=== PATIENT | female | born 1990 | race Two or more races ===

== ENCOUNTER 2018-06-02 20:51 | Inpatient (IN) | payer SELFPAY ==
[~2018-06-02] VITALS: Ht 172.7 cm; Wt 67.1 kg
[2018-06-02] MEDS ORDERED: SODIUM CHLORIDE 0.9% 1,000ML IVBOLUS ONE (22:00)
[2018-06-02] MEDS ORDERED: ACETAMINOPHEN 325 MG TABLET PO ONE (22:00)
[2018-06-02 22:12] LABS: MEAN CORPUSCULAR HEMOGLOBIN 31.9 pg (27.0-34.8); MEAN CORPUSCULAR HGB CONC 33.7 g/dL (32.4-35.8); MEAN CORPUSCULAR VOLUME 94.5 fL (80-100); MEAN PLATELET VOLUME 8.2 fL (7.4-10.4); PLATELET COUNT 334 x10^3/uL (130-400); RED BLOOD COUNT 3.69 x10^6/uL (3.82-5.3); RED CELL DISTRIBUTION WIDTH 14.6 % (9.6-15.2)
[2018-06-02 22:13] LABS: CULTURE INDICATED? NO; MICROSCOPIC NOT IND
[2018-06-02 22:24] LABS: ALANINE AMINOTRANSFERASE 20 U/L (12-78); ALBUMIN 3.2 g/dL (3.4-5.0); ANION GAP 5 mmol/L (5-15); CALCIUM 8.4 mg/dL (8.5-10.1); CHLORIDE 111 mmol/L (98-107); CREATININE 0.62 mg/dL (0.55-1.02)
[2018-06-02 22:26] LABS: AMPHETAMINE SCREEN, URINE Negative (Negative); BARBITURATE SCREEN, URINE Negative (Negative); BENZODIAZEPINE SCREEN, URINE Negative (Negative); CANNABINOID SCREEN, URINE Negative (Negative); COCAINE SCREEN, URINE Negative (Negative); METHADONE SCREEN, URINE Negative (Negative); OPIATE SCREEN, URINE Negative (Negative)
[2018-06-02 22:29] LABS: ALKALINE PHOSPHATASE 84 U/L (45-117); BILIRUBIN,TOTAL 0.3 mg/dL (0.2-1.0); SALICYLATE LEVEL < 1.7 mg/dL (2.8-20.0); TOTAL PROTEIN 6.8 g/dL (6.4-8.2); TROPONIN I < 0.015 ng/mL (0.000-0.045)
[2018-06-02 22:30] LABS: ACETAMINOPHEN < 2 mcg/mL (10-30)
[2018-06-02 22:33] LABS: BASOPHILS # (AUTO) 0.03 x10^3/uL (0-0.1); BASOPHILS % (AUTO) 0 % (0-1); EOSINOPHILS # (AUTO) 0.01 x10^3/uL (0-0.4); EOSINOPHILS % (AUTO) 0 % (1-7); LYMPHOCYTES # (AUTO) 1.37 x10^3/uL (1-3.4); LYMPHOCYTES % (AUTO) 6 % (22-44); MD SCAN; MONOCYTES % (AUTO) 6 % (2-9); NEUTROPHILS # (AUTO) 19.22 x10^3/uL (1.8-6.8); NEUTROPHILS % (AUTO) 88 % (42-75)
[2018-06-02] MEDS ORDERED: ACETAMINOPHEN 325 MG TABLET ONE (23:25)
[2018-06-03] MEDS ORDERED: CEFTRIAXONE 1,000 MG in SODIUM CHLORIDE 0.9% 50 ML IV ONE
[2018-06-03] MEDS ORDERED: SODIUM CHLORIDE 0.9% 1,000 ML IV ONE (00:07)
[2018-06-03] MEDS ORDERED: CEFTRIAXONE PMX 1GM/50ML 50 ML ONE (00:19)
[2018-06-03] MEDS ORDERED: ACETAMINOPHEN 325 MG TABLET ONE (00:23)
[2018-06-03] MEDS ORDERED: ONDANSETRON 2MG/ML, 2ML IVPush PRN (00:30)
[2018-06-03] MEDS ORDERED: PROMETHAZINE 25 MG/ML, 1ML IM PRN (00:30)
[2018-06-03] MEDS ORDERED: ONDANSETRON ODT 4 MG PO PRN (00:30)
[2018-06-03 01:00] VITALS: BP 106/66
[2018-06-03] MEDS: POTASSIUM CHLORIDE 20 MEQ, MAGNESIUM SULFATE 2 GM, THIAMINE 100 MG, MVI ADULT 10 ML, FO... IV SCH (03:40)
[2018-06-03 05:50] LABS: MEAN CORPUSCULAR HEMOGLOBIN 32.4 pg (27.0-34.8); MEAN CORPUSCULAR HGB CONC 34.2 g/dL (32.4-35.8); MEAN CORPUSCULAR VOLUME 94.5 fL (80-100); MEAN PLATELET VOLUME 8.4 fL (7.4-10.4); PLATELET COUNT 327 x10^3/uL (130-400); RED BLOOD COUNT 3.51 x10^6/uL (3.82-5.3); RED CELL DISTRIBUTION WIDTH 14.7 % (9.6-15.2)
[2018-06-03 06:23] LABS: HCT (SEDRATE) 33.2 % (34.6-47.8)
[2018-06-03 06:40] LABS: ALBUMIN 2.9 g/dL (3.4-5.0); ANION GAP 6 mmol/L (5-15); CALCIUM 8.8 mg/dL (8.5-10.1); CHLORIDE 111 mmol/L (98-107)
[2018-06-03 06:57] LABS: MD YES
[2018-06-03 06:59] LABS: BAND#(MANUAL) 0.73 x10^3/uL; BANDS%(MANUAL) 3 % (0-7); LYMPH#(MANUAL) 2.18 x10^3/uL (1-3.4); LYMPHS% (MANUAL) 9 % (22-44); MONOS#(MANUAL) 1.21 x10^3/uL (0.3-2.7); MONOS% (MANUAL) 5 % (2-9); REACTIVE LYMPHS # (MANUAL) 0.24 x10^3/uL (0-0); REACTIVE LYMPHS % (MANUAL) 1 % (0-0); SEG#(MANUAL) 19.84 x10^3/uL (1.8-6.8); SEGS% (MANUAL) 82 % (42-75)
[2018-06-03 07:02] LABS: <RBC MORPHOLOGY> NORMAL
[2018-06-03 07:03] LABS: <PLATELET ESTIMATE> ADEQUATE; <PLT MORPHOLOGY> NORMAL PLT MORPH
[2018-06-03 07:10] LABS: ALANINE AMINOTRANSFERASE 18 U/L (12-78); ALKALINE PHOSPHATASE 93 U/L (45-117); BILIRUBIN,TOTAL 0.4 mg/dL (0.2-1.0); CREATININE 0.52 mg/dL (0.55-1.02); FOLATE LEVEL 9.7 ng/mL (3.1-17.5); TOTAL PROTEIN 6.6 g/dL (6.4-8.2)
[2018-06-03 07:46] VITALS: BP 117/77
[2018-06-03] MEDS: ACETAMINOPHEN 325 MG TABLET PO PRN ×2 (12:48→21:43)
[2018-06-03 15:00] VITALS: BP 103/66
[2018-06-03 20:08] VITALS: BP 109/75
[2018-06-03] MEDS ORDERED: ZIPRASIDONE 20MG CAPSULE PO ONE (21:00)
[2018-06-03] MEDS ORDERED: ACETAMINOPHEN 500 MG TABLET ONE (21:41)
[2018-06-04 01:21] VITALS: BP 103/70
[2018-06-04] MEDS: POTASSIUM CHLORIDE 20 MEQ, MAGNESIUM SULFATE 2 GM, THIAMINE 100 MG, MVI ADULT 10 ML, FO... IV SCH (01:43)
[2018-06-04] MEDS ORDERED: SODIUM CHLORIDE 0.9% 1,000 ML IV SCH (07:00)
[2018-06-04 08:01] VITALS: BP 104/71
[2018-06-04] MEDS ORDERED: ZIPRASIDONE 20MG CAPSULE PO PRN (09:00)
[2018-06-04 13:12] VITALS: BP 118/78
[2018-06-04] MEDS ORDERED: CEFTRIAXONE 2 GM in SODIUM CHLORIDE 0.9% 50 ML IV SCH (14:00)
[2018-06-04] MEDS ORDERED: SODIUM CHLORIDE 0.9% 1,000ML IVBOLUS ONE (16:00)
[2018-06-04] MEDS ORDERED: GADOBUTROL 7.5 MMOL/7.5 ML PFS ONE (16:56)
[2018-06-04] MEDS: ACETAMINOPHEN 325 MG TABLET PO PRN (17:14)
[2018-06-04] MEDS ORDERED: LORazepam 2 MG/ML, 1ML IM STA (19:59)
[2018-06-04] MEDS ORDERED: LORazepam 2 MG/ML, 1ML ONE (20:03)
[2018-06-04 20:13] VITALS: BP 104/72
[2018-06-04] MEDS: NICOTINE 7 MG/24 HR PATCH.TD24 TD SCH (22:30)
[2018-06-05 01:02] VITALS: BP 101/66
[2018-06-05] MEDS: POTASSIUM CHLORIDE 20 MEQ, MAGNESIUM SULFATE 2 GM, THIAMINE 100 MG, MVI ADULT 10 ML, FO... IV SCH (01:16)
[2018-06-05 05:32] LABS: ALBUMIN 3.2 g/dL (3.4-5.0); ANION GAP 5 mmol/L (5-15); CALCIUM 9.7 mg/dL (8.5-10.1); CHLORIDE 108 mmol/L (98-107)
[2018-06-05 05:36] LABS: ALANINE AMINOTRANSFERASE 23 U/L (12-78); ALKALINE PHOSPHATASE 86 U/L (45-117); BILIRUBIN,TOTAL 0.2 mg/dL (0.2-1.0); CREATININE 0.54 mg/dL (0.55-1.02); TOTAL PROTEIN 7.5 g/dL (6.4-8.2)
[2018-06-05 05:47] LABS: BASOPHILS # (AUTO) 0.05 x10^3/uL (0-0.1); BASOPHILS % (AUTO) 1 % (0-1); EOSINOPHILS # (AUTO) 0.03 x10^3/uL (0-0.4); EOSINOPHILS % (AUTO) 0 % (1-7); LYMPHOCYTES # (AUTO) 2.26 x10^3/uL (1-3.4); LYMPHOCYTES % (AUTO) 33 % (22-44); MD NO; MEAN CORPUSCULAR HEMOGLOBIN 31.2 pg (27.0-34.8); MEAN CORPUSCULAR VOLUME 94.4 fL (80-100); MEAN PLATELET VOLUME 8.2 fL (7.4-10.4); MONOCYTES # (AUTO) 0.44 x10^3/uL (0.2-0.8); MONOCYTES % (AUTO) 6 % (2-9); NEUTROPHILS # (AUTO) 4.14 x10^3/uL (1.8-6.8); NEUTROPHILS % (AUTO) 60 % (42-75); PLATELET COUNT 399 x10^3/uL (130-400); RED BLOOD COUNT 3.96 x10^6/uL (3.82-5.3); RED CELL DISTRIBUTION WIDTH 14.6 % (9.6-15.2)
[2018-06-05 06:47] VITALS: BP 106/66
[2018-06-05] MEDS ORDERED: SODIUM CHLORIDE 0.9% 1,000 ML IV SCH (07:00)
[2018-06-05] MEDS: ACETAMINOPHEN 325 MG TABLET PO PRN ×2 (08:27→16:15)
[2018-06-05 12:02] VITALS: BP 104/67
[2018-06-05] MEDS: SODIUM CHLORIDE 0.9% 1,000 ML IV SCH (15:48)
[2018-06-05 19:25] VITALS: BP 97/64
[2018-06-05] MEDS: NICOTINE 7 MG/24 HR PATCH.TD24 TD SCH (22:18)
[2018-06-06] MEDS: POTASSIUM CHLORIDE 20 MEQ, MAGNESIUM SULFATE 2 GM, THIAMINE 100 MG, MVI ADULT 10 ML, FO... IV SCH (00:36)
[2018-06-06 01:47] VITALS: BP 105/67
[2018-06-06 06:27] LABS: ALBUMIN 3.1 g/dL (3.4-5.0); ANION GAP 6 mmol/L (5-15); CHLORIDE 109 mmol/L (98-107)
[2018-06-06 06:31] LABS: CREATINE KINASE, TOTAL 131 U/L (26-192); CREATININE 0.49 mg/dL (0.55-1.02)
[2018-06-06 09:12] VITALS: BP 113/77
[2018-06-06] MEDS: SODIUM CHLORIDE 0.9% 1,000 ML IV SCH (10:23)
[2018-06-06] MEDS: ACETAMINOPHEN 325 MG TABLET PO PRN ×2 (10:31→20:56)
[2018-06-06 15:28] VITALS: BP 119/69
[2018-06-06 19:10] VITALS: BP 118/79
[2018-06-06] MEDS: OLANZAPINE 10 MG TABLET PO SCH (20:56)
[2018-06-06] MEDS: NICOTINE 7 MG/24 HR PATCH.TD24 TD SCH (20:58)
[2018-06-07] MEDS: POTASSIUM CHLORIDE 20 MEQ, MAGNESIUM SULFATE 2 GM, THIAMINE 100 MG, MVI ADULT 10 ML, FO... IV SCH (00:18)
[2018-06-07 02:00] VITALS: BP 115/71
[2018-06-07] MEDS ORDERED: ACETAMINOPHEN 500 MG TABLET ONE (06:42)
[2018-06-07] MEDS: ACETAMINOPHEN 325 MG TABLET PO PRN (06:45)
[2018-06-07 08:51] VITALS: BP 105/69
[2018-06-07 12:31] VITALS: BP 126/90
[2018-06-07] MEDS: ZIPRASIDONE 20 MG INJ IM PRN (18:20)
[2018-06-07] MEDS: OLANZAPINE 10 MG TABLET PO SCH (21:00)
[2018-06-07 21:02] VITALS: BP 149/76
[2018-06-07] MEDS: NICOTINE 7 MG/24 HR PATCH.TD24 TD SCH (22:30)
[2018-06-08] MEDS ORDERED: ACETAMINOPHEN 500 MG TABLET ONE ×2 (00:46→22:06)
[2018-06-08] MEDS: ACETAMINOPHEN 325 MG TABLET PO PRN ×2 (00:51→22:11)
[2018-06-08 06:48] VITALS: BP 110/70
[2018-06-08] MEDS: THIAMINE 100MG TABLET PO SCH (09:00)
[2018-06-08] MEDS: MULTIVITAMIN 1 TABLET PO SCH (09:02)
[2018-06-08 12:45] VITALS: BP 127/79
[2018-06-08] MEDS: ZIPRASIDONE 20 MG INJ IM PRN (17:48)
[2018-06-08] MEDS: OLANZAPINE 10 MG TABLET PO SCH (21:00)
[2018-06-08] MEDS: NICOTINE 7 MG/24 HR PATCH.TD24 TD SCH (22:12)
[2018-06-09 06:39] VITALS: BP 126/84
[2018-06-09 08:14] LABS: BASOPHILS # (AUTO) 0.03 x10^3/uL (0-0.1); BASOPHILS % (AUTO) 0 % (0-1); EOSINOPHILS # (AUTO) 0.01 x10^3/uL (0-0.4); EOSINOPHILS % (AUTO) 0 % (1-7); LYMPHOCYTES # (AUTO) 2.36 x10^3/uL (1-3.4); LYMPHOCYTES % (AUTO) 24 % (22-44); MD NO; MEAN CORPUSCULAR HEMOGLOBIN 31.2 pg (27.0-34.8); MEAN CORPUSCULAR HGB CONC 33.3 g/dL (32.4-35.8); MEAN CORPUSCULAR VOLUME 93.6 fL (80-100); MEAN PLATELET VOLUME 7.7 fL (7.4-10.4); MONOCYTES # (AUTO) 0.68 x10^3/uL (0.2-0.8); MONOCYTES % (AUTO) 7 % (2-9); NEUTROPHILS # (AUTO) 6.87 x10^3/uL (1.8-6.8); NEUTROPHILS % (AUTO) 69 % (42-75); PLATELET COUNT 465 x10^3/uL (130-400); RED BLOOD COUNT 3.87 x10^6/uL (3.82-5.3); RED CELL DISTRIBUTION WIDTH 14.4 % (9.6-15.2)
[2018-06-09 08:25] LABS: ALANINE AMINOTRANSFERASE 26 U/L (12-78); ALBUMIN 3.7 g/dL (3.4-5.0); CALCIUM 9.2 mg/dL (8.5-10.1); CREATININE 0.57 mg/dL (0.55-1.02)
[2018-06-09 08:27] LABS: ALKALINE PHOSPHATASE 82 U/L (45-117); BILIRUBIN,TOTAL 0.3 mg/dL (0.2-1.0); TOTAL PROTEIN 7.7 g/dL (6.4-8.2)
[2018-06-09 08:36] LABS: ANION GAP 9 mmol/L (5-15); CHLORIDE 105 mmol/L (98-107)
[2018-06-09] MEDS: THIAMINE 100MG TABLET PO SCH (09:05)
[2018-06-09] MEDS: MULTIVITAMIN 1 TABLET PO SCH (09:05)
[2018-06-09] MEDS: ZIPRASIDONE 20 MG INJ IM PRN (10:13)
[2018-06-09] MEDS: LORazepam 2 MG/ML, 1ML IM PRN (10:13)
[2018-06-09] MEDS ORDERED: ACETAMINOPHEN 500 MG TABLET ONE (15:38)
[2018-06-09] MEDS ORDERED: ACETAMINOPHEN 500 MG TABLET PO PRN (15:43)
[2018-06-09 20:00] VITALS: BP 105/70
[2018-06-09] MEDS: OLANZAPINE 10 MG TABLET PO SCH (20:42)
[2018-06-09] MEDS: NICOTINE 7 MG/24 HR PATCH.TD24 TD SCH (21:12)
[2018-06-10] MEDS: THIAMINE 100MG TABLET PO SCH (09:00)
[2018-06-10] MEDS: MULTIVITAMIN 1 TABLET PO SCH (09:00)
[2018-06-10 12:00] VITALS: BP 120/76
[2018-06-10 19:54] VITALS: BP 130/76
[2018-06-10] MEDS: NICOTINE 7 MG/24 HR PATCH.TD24 TD SCH (20:11)
[2018-06-10] MEDS: OLANZAPINE 10 MG TABLET PO SCH (20:11)
[2018-06-11 07:11] VITALS: BP 118/67
[2018-06-11] MEDS: MULTIVITAMIN 1 TABLET PO SCH (08:27)
[2018-06-11] MEDS: THIAMINE 100MG TABLET PO SCH (08:27)
[2018-06-11 19:10] VITALS: BP 116/73
[2018-06-11] MEDS: OLANZAPINE 10 MG TABLET PO SCH (21:00)
[2018-06-11] MEDS: NICOTINE 7 MG/24 HR PATCH.TD24 TD SCH (21:09)
[2018-06-12 01:40] VITALS: BP 109/78
[2018-06-12 08:24] VITALS: BP 127/73
[2018-06-12] MEDS: THIAMINE 100MG TABLET PO SCH (09:00)
[2018-06-12] MEDS: MULTIVITAMIN 1 TABLET PO SCH (09:00)
[2018-06-12 17:50] VITALS: BP 125/82
[2018-06-12 20:56] VITALS: BP 108/73
[2018-06-12] MEDS: OLANZAPINE 10 MG TABLET PO SCH (21:00)
[2018-06-12] MEDS: NICOTINE 7 MG/24 HR PATCH.TD24 TD SCH (21:11)
[2018-06-12 23:30] VITALS: BP 126/74
[2018-06-13 07:50] VITALS: BP 114/76
[2018-06-13] MEDS: MULTIVITAMIN 1 TABLET PO SCH ×2 (08:22→08:34)
[2018-06-13] MEDS: THIAMINE 100MG TABLET PO SCH ×2 (08:22→08:34)
[2018-06-13 19:28] VITALS: BP 111/80
[2018-06-13] MEDS: NICOTINE 7 MG/24 HR PATCH.TD24 TD SCH (20:22)
[2018-06-13] MEDS: OLANZAPINE 10 MG TABLET PO SCH (20:22)
[2018-06-14] MEDS: MULTIVITAMIN 1 TABLET PO SCH (08:00)
[2018-06-14] MEDS: THIAMINE 100MG TABLET PO SCH (09:00)
[2018-06-14] MEDS: OLANZAPINE 10 MG TABLET PO SCH (20:21)
[2018-06-14] MEDS: NICOTINE 7 MG/24 HR PATCH.TD24 TD SCH (21:14)
[2018-06-15 08:22] VITALS: BP 132/77
[2018-06-15] MEDS: MULTIVITAMIN 1 TABLET PO SCH (08:42)
[2018-06-15] MEDS: THIAMINE 100MG TABLET PO SCH (08:42)
[2018-06-15] MEDS: LORazepam 2 MG/ML, 1ML IM PRN (17:31)
[2018-06-15] MEDS: ZIPRASIDONE 20 MG INJ IM PRN (17:31)
[2018-06-15 19:29] VITALS: BP 114/70
[2018-06-15] MEDS: OLANZAPINE 10 MG TABLET PO SCH (20:17)
[2018-06-15] MEDS: NICOTINE 7 MG/24 HR PATCH.TD24 TD SCH (22:30)
[2018-06-16] MEDS: THIAMINE 100MG TABLET PO SCH (08:28)
[2018-06-16] MEDS: MULTIVITAMIN 1 TABLET PO SCH (08:28)
[2018-06-16] MEDS: ZIPRASIDONE 20 MG INJ IM PRN (08:33)
[2018-06-16] MEDS: OLANZAPINE 10 MG TABLET PO SCH (21:00)
[2018-06-16] MEDS: NICOTINE 7 MG/24 HR PATCH.TD24 TD SCH (22:30)
== END 2018-06-17 04:43 | DRG 309 ==
LOC: ED 23:54 → SUATTDRO 06-03 00:29 → EDIP 06-03 00:29 → 4EST 06-03 00:54 → 2N 06-12 23:26
PROVIDERS: ADMIT Hospitalist; ATTEND Family Medicine
DX: R00.0 Tachycardia, unspecified (principal); F31.2 Bipolar disorder, current episode manic severe with psychotic features; F23 Brief psychotic disorder; E88.09 Other disorders of plasma-protein metabolism, not elsewhere classified; D72.829 Elevated white blood cell count, unspecified; D64.9 Anemia, unspecified; Z78.1 Physical restraint status; Z91.14 Patient's other noncompliance with medication regimen
CPT/HCPCS: 36415; 70450; 70553; 71045; 80048; 80053; 80307; 80329; 81003; 82040; 82550; 82607; 82746; 83605; 83735; 84100; 84145; 84443; 84484; 84550; 84703; 85025; 85651; 86140; 86592; 87040; 87806; 93005; 93306; 96374; A9585; G0378; J0696; J3411; J3475; J3480; J3486; J7042; 92523-GN; G0475; G0480; J2060; J7030